=== PATIENT | male | born 1955 | race Caucasian/White ===

== ENCOUNTER 2020-07-31 11:14 | Emergency (ER) | payer SELFPAY ==
[~2020-07-31] VITALS: Ht 152.4 cm; Wt 73.0 kg
[2020-07-31] MEDS ORDERED: HYDRALAZINE 20MG/ML VIAL IV ONE (11:45)
[2020-07-31 12:17] VITALS: BP 164/82
[2020-07-31 12:26] LABS: BASOPHILS % 0.7 % (0.0-2.0); EOSINOPHILS % 5.6 % (0.0-5.0); HEMATOCRIT. 41.6 % (42.0-52.0); HEMOGLOBIN. 13.4 g/dL (14.0-18.0); LYMPHOCYTES % 21.2 % (20.0-50.0); MEAN CORPUSCULAR HEMOGLOBIN 26.6 pg (28.0-32.0); MEAN CORPUSCULAR VOLUME 82.8 fL (80.0-94.0); MEAN PLATELET VOLUME 10.5 fl (7.4-10.4); MONOCYTES % 6.4 % (2.0-8.0); NEUTROPHILS % 66.1 % (40.0-76.0); PLATELET 187 x1000/uL (130-400); RED BLOOD CELL COUNT 5.02 mill/uL (4.7-6.1); RED CELL DISTRIBUTION WIDTH 14.6 % (11.6-14.6)
[2020-07-31 12:35] LABS: CHLORIDE 108 mEq/L (98-107)
[2020-07-31 12:38] LABS: PROTHROMBIN TIME 10.9 sec (9.6-11.0)
[2020-07-31 12:43] LABS: ETHANOL BLOOD < 10 mg/dL
[2020-07-31] MEDS ORDERED: IOHEXOL-300 100 ML BOTTLE ONE (14:11)
== END 2020-07-31 16:15 | disposition home or self-care (01) ==
LOC: ER 11:14
DX: E16.2 Hypoglycemia, unspecified (principal); I10 Essential (primary) hypertension
CPT/HCPCS: 36415; 71045; 74177; 80053; 80320; 82962; 83605; 83690; 85025; 85610; 93005; 96374; 99285; J0360; Q9967; Z7610; G0480

== ENCOUNTER 2021-10-05 15:45 | Emergency (ER) | payer MEDICAID ==
[~2021-10-05] VITALS: Ht 175.3 cm; Wt 75.0 kg
[~2021-10-05 15:45] MED LIST: ASPI-1497 PO; GABA-532 PO; HUM100IN SQ; LISI10TA26 MT; METF-414 MT; OMEP40CA20 PO; PRAV20TA57 MT
[2021-10-05] MEDS ORDERED: MORPHINE SULFATE 4 MG/ML CPJ (NOT FOR IM USE) IV ONE (16:30)
[2021-10-05 16:47] LABS: CHLORIDE 106 mEq/L (98-107)
[2021-10-05 17:25] LABS: BASOPHILS % 0.5 % (0.0-2.0); EOSINOPHILS % 6.4 % (0.0-5.0); HEMATOCRIT. 37.8 % (42.0-52.0); HEMOGLOBIN. 12.5 g/dL (14.0-18.0); LYMPHOCYTES % 27.8 % (20.0-50.0); MEAN CORPUSCULAR HEMOGLOBIN 27.2 pg (28.0-32.0); MEAN CORPUSCULAR VOLUME 81.8 fL (80.0-94.0); MEAN PLATELET VOLUME 8.9 fl (7.4-10.4); MONOCYTES % 7.4 % (2.0-8.0); NEUTROPHILS % 57.9 % (40.0-76.0); PLATELET 150 x1000/uL (130-400); RED BLOOD CELL COUNT 4.62 mill/uL (4.7-6.1); RED CELL DISTRIBUTION WIDTH 16.8 % (11.6-14.6)
[2021-10-05] MEDS ORDERED: ACETAMINOPHEN 325MG TABLET PO ONE (18:00)
[2021-10-05 18:10] VITALS: BP 173/89
[2021-10-05] MEDS ORDERED: ACET-2708 MT (18:46)
[2021-10-05] MEDS ORDERED: IOHEXOL-350 100 ML BOTTLE ONE (19:44)
== END 2021-10-05 19:22 | disposition home or self-care (01) ==
LOC: ER 15:45
DX: R07.9 Chest pain, unspecified (principal); R10.9 Unspecified abdominal pain; I10 Essential (primary) hypertension; F17.210 Nicotine dependence, cigarettes, uncomplicated; Z79.4 Long term (current) use of insulin; Z79.82 Long term (current) use of aspirin; Z86.73 Personal history of transient ischemic attack (TIA), and cerebral infarction without residual deficits; Z86.718 Personal history of other venous thrombosis and embolism
CPT/HCPCS: 36415; 71045; 71275; 74174; 80053; 83690; 83880; 84484; 85025; 93005; 96374; 99285; J2270; Q9967

== ENCOUNTER 2021-11-12 14:21 | Inpatient (IN) | payer MEDICAID ==
[~2021-11-12] VITALS: Ht 170.2 cm; Wt 83.5 kg
[~2021-11-12 14:21] MED LIST changes: +ACET-2708 MT
[2021-11-12] MEDS ORDERED: DIPHENHYDRAMINE 50MG/ML VIAL IV ONE (15:00)
[2021-11-12] MEDS ORDERED: SODIUM CHLORIDE 0.9% 1,000 ML IV ONE (15:00)
[2021-11-12] MEDS ORDERED: PROCHLORPERAZINE 10MG/2ML VIAL IV ONE (15:00)
[2021-11-12 15:15] LABS: BASOPHILS % 0.8 % (0.0-2.0); EOSINOPHILS % 13.4 % (0.0-5.0); HEMOGLOBIN. 13.9 g/dL (14.0-18.0); MEAN CORPUSCULAR HEMOGLOBIN 27.3 pg (28.0-32.0); MEAN CORPUSCULAR VOLUME 84.2 fL (80.0-94.0); MEAN PLATELET VOLUME 9.5 fl (7.4-10.4); MONOCYTES % 4.6 % (2.0-8.0); NEUTROPHILS % 41.2 % (40.0-76.0); PLATELET 159 x1000/uL (130-400); RED BLOOD CELL COUNT 5.11 mill/uL (4.7-6.1); RED CELL DISTRIBUTION WIDTH 16.5 % (11.6-14.6)
[2021-11-12 15:23] LABS: CHLORIDE 107 mEq/L (98-107)
[2021-11-12 15:37] LABS: ETHANOL BLOOD < 10 mg/dL
[2021-11-12 20:40] LABS: CLARITY URINE CLEAR (CLEAR); COLOR URINE YELLOW (YELLOW); KETONES URINE NEGATIVE (NEGATIVE); LEUKOCYTE ESTERASE URINE NEGATIVE (NEGATIVE); NITRITE URINE NEGATIVE (NEGATIVE); OCCULT BLOOD URINE NEGATIVE (NEGATIVE); PROTEIN URINE NEGATIVE (NEGATIVE); SPECIFIC GRAVITY URINE 1.013 (1.005-1.030)
[2021-11-12 20:54] LABS: *AMPHETAMINES SCREEN URINE NEGATIVE (NEGATIVE); *BARBITURATES SCREEN URINE NEGATIVE (NEGATIVE); *BENZODIAZEPINES SCREEN URINE NEGATIVE (NEGATIVE); *COCAINE SCREEN URINE NEGATIVE (NEGATIVE); CANNABINOID URINE SCREEN NEGATIVE (NEGATIVE); METHADONE URINE SCREEN NEGATIVE (NEGATIVE); OPIATES URINE SCREEN NEGATIVE (NEGATIVE); PHENCYCLIDINE URINE SCREEN NEGATIVE (NEGATIVE)
[2021-11-12 21:21] VITALS: BP 178/97
[2021-11-12 21:25] VITALS: BP 178/97
[2021-11-12] MEDS ORDERED: DOCUSATE SODIUM 100MG CAPSULE PO PRN (22:30)
[2021-11-12] MEDS ORDERED: MORPHINE SULFATE 2 MG/ML CPJ (NOT FOR IM USE) IV PRN (22:30)
[2021-11-12] MEDS ORDERED: ONDANSETRON HCL 4MG/2ML INJ IV PRN (22:30)
[2021-11-12] MEDS ORDERED: ACETAMINOPHEN 325MG TABLET PO PRN (22:30)
[2021-11-12] MEDS ORDERED: LORAZEPAM 2MG/ML CPJ IV PRN (22:30)
[2021-11-12] MEDS ORDERED: NALOXONE HCL 0.4MG/ML VIAL IV PRN (22:45)
[2021-11-12] MEDS: HYDROCODONE/ACETAMINOPHEN 5/325MG TABLET PO PRN (23:32)
[2021-11-12] MEDS: SODIUM CHLORIDE 0.9% 1,000 ML IV SCH (23:33)
[2021-11-13] VITALS: BP 156/92
[2021-11-13 04:00] VITALS: BP 123/74
[2021-11-13] MEDS: HYDROCODONE/ACETAMINOPHEN 5/325MG TABLET PO PRN ×3 (05:49→22:11)
[2021-11-13 06:59] LABS: BASOPHILS % 0.6 % (0.0-2.0); EOSINOPHILS % 12.7 % (0.0-5.0); HEMATOCRIT. 40.3 % (42.0-52.0); HEMOGLOBIN. 12.9 g/dL (14.0-18.0); LYMPHOCYTES % 41.8 % (20.0-50.0); MEAN CORPUSCULAR HEMOGLOBIN 27.4 pg (28.0-32.0); MEAN CORPUSCULAR VOLUME 85.4 fL (80.0-94.0); MEAN PLATELET VOLUME 9.7 fl (7.4-10.4); MONOCYTES % 5.9 % (2.0-8.0); PLATELET 159 x1000/uL (130-400); RED BLOOD CELL COUNT 4.72 mill/uL (4.7-6.1); RED CELL DISTRIBUTION WIDTH 16.3 % (11.6-14.6)
[2021-11-13 08:00] VITALS: BP 156/88
[2021-11-13 08:35] LABS: CHLORIDE 109 mEq/L (98-107)
[2021-11-13 08:41] LABS: CREATINE KINASE 54 IU/L (39-308); CREATINE KINASE MB FRACTION < 1.0 ng/mL (0.5-3.6)
[2021-11-13] MEDS: ENOXAPARIN 40MG/0.4ML SYR SUBCUT SCH (09:41)
[2021-11-13] MEDS: SODIUM CHLORIDE 0.9% 1,000 ML IV SCH ×2 (09:42→22:46)
[2021-11-13] MEDS: AMLODIPINE 10MG TABLET PO SCH (11:18)
[2021-11-13 12:00] VITALS: BP 166/85
[2021-11-13 16:00] VITALS: BP 164/88
[2021-11-13 18:44] LABS: CREATINE KINASE MB FRACTION 1.2 ng/mL (0.5-3.6)
[2021-11-13 19:23] LABS: VITAMIN B12 SERUM 324 pg/mL (211-911)
[2021-11-13 20:00] VITALS: BP 157/83
[2021-11-13] MEDS: ATORVASTATIN CALCIUM 40MG TABLET PO SCH (22:11)
[2021-11-13] MEDS ORDERED: DEXTROSE 50% WATER 50ML SYRINGE IV PRN (22:30)
[2021-11-13] MEDS ORDERED: INSULIN LISPRO 100 UNITS/ML SUBCUT SCH (22:30)
[2021-11-14] VITALS: BP 140/78
[2021-11-14] MEDS: SODIUM CHLORIDE 0.9% 1,000 ML IV SCH ×3 (03:40→23:25)
[2021-11-14 04:00] VITALS: BP 127/80
[2021-11-14] MEDS: BLOOD SUGAR DIAGNOSTIC STRIP TEST SCH ×4 (06:34→20:48)
[2021-11-14 08:00] VITALS: BP_SYST 132; BP_SYST 179; BP_SYST 181; BP_SYST 183; BP_DIAS 81; BP_DIAS 91; BP_DIAS 97; BP_DIAS 99
[2021-11-14] MEDS: AMLODIPINE 10MG TABLET PO SCH (08:38)
[2021-11-14] MEDS: ASPIRIN 81MG TABLET PO SCH (08:38)
[2021-11-14] MEDS: ENOXAPARIN 40MG/0.4ML SYR SUBCUT SCH (08:39)
[2021-11-14] MEDS: INSULIN LISPRO 100 UNITS/ML SUBCUT SCH ×4 (08:46→20:58)
[2021-11-14 12:00] VITALS: BP_SYST 126; BP_SYST 165; BP_DIAS 74; BP_DIAS 89
[2021-11-14] MEDS ORDERED: HYDRALAZINE 20MG/ML VIAL IV PRN (14:00)
[2021-11-14 16:00] VITALS: BP 171/87
[2021-11-14] MEDS: PANTOPRAZOLE SODIUM 40 MG/VIAL IV SCH (16:00)
[2021-11-14 20:00] VITALS: BP_SYST 152; BP_SYST 162; BP_DIAS 80
[2021-11-14] MEDS: ATORVASTATIN CALCIUM 40MG TABLET PO SCH (20:49)
[2021-11-15] VITALS (8 sets, daily range): BP systolic 130–171; BP diastolic 75–100
[2021-11-15 06:26] LABS: CHLORIDE 106 mEq/L (98-107)
[2021-11-15] MEDS: BLOOD SUGAR DIAGNOSTIC STRIP TEST SCH ×2 (07:02→12:21)
[2021-11-15 07:30] LABS: BASOPHILS % 0.7 % (0.0-2.0); EOSINOPHILS % 9.8 % (0.0-5.0); HEMATOCRIT. 41.4 % (42.0-52.0); HEMOGLOBIN. 13.6 g/dL (14.0-18.0); LYMPHOCYTES % 37.9 % (20.0-50.0); MEAN CORPUSCULAR HEMOGLOBIN 27.4 pg (28.0-32.0); MEAN CORPUSCULAR VOLUME 83.5 fL (80.0-94.0); NEUTROPHILS % 46.6 % (40.0-76.0); PLATELET 166 x1000/uL (130-400); RED BLOOD CELL COUNT 4.95 mill/uL (4.7-6.1)
[2021-11-15] MEDS: INSULIN LISPRO 100 UNITS/ML SUBCUT SCH ×2 (08:43→12:22)
[2021-11-15] MEDS: AMLODIPINE 10MG TABLET PO SCH (08:44)
[2021-11-15] MEDS: PANTOPRAZOLE SODIUM 40 MG/VIAL IV SCH (08:44)
[2021-11-15] MEDS: ASPIRIN 81MG TABLET PO SCH (08:44)
[2021-11-15] MEDS: ENOXAPARIN 40MG/0.4ML SYR SUBCUT SCH (08:45)
[2021-11-15] MEDS ORDERED: PANTOPRAZOLE SODIUM 40 MG/VIAL IV SCH (09:00)
[2021-11-15] MEDS: SODIUM CHLORIDE 0.9% 1,000 ML IV SCH (10:57)
[2021-11-15] MEDS ORDERED: PREDNISONE 20MG TABLET PO SCH (13:30)
[2021-11-15] MEDS ORDERED: FAMOTIDINE 20MG/2ML VIAL IV SCH (21:00)
== END 2021-11-15 16:51 | disposition home or self-care (01) | DRG 199 ==
LOC: ER 14:21 → 6WST 18:39 → ENRESERV 19:39
PROVIDERS: ADMIT Internal Medicine Nephrology; ATTEND Internal Medicine Nephrology
PROC: 4A00X4Z Measurement of Central Nervous Electrical Activity, External Approach (ICD-10-PCS; principal; 2021-11-14)
DX: I16.0 Hypertensive urgency (principal); E11.43 Type 2 diabetes mellitus with diabetic autonomic (poly)neuropathy; K31.84 Gastroparesis; G43.909 Migraine, unspecified, not intractable, without status migrainosus; M48.02 Spinal stenosis, cervical region; I10 Essential (primary) hypertension; Z86.718 Personal history of other venous thrombosis and embolism; Z82.49 Family history of ischemic heart disease and other diseases of the circulatory system; Z79.4 Long term (current) use of insulin; Z79.899 Other long term (current) drug therapy
CPT/HCPCS: 36415; 70551; 72141; 80048; 80053; 80305; 80320; 81003; 82550; 82553; 82607; 82962; 83036; 83735; 84443; 84484; 85025; 86703; 93005; 93306; 93970; 95816; 97162; 99285; C9113; J0360; J0780; J1200; J1650; J1815; J2405; J7030; G0480

== ENCOUNTER 2022-03-02 15:42 | Emergency (ER) | payer MEDICAID ==
[~2022-03-02] VITALS: Ht 172.7 cm; Wt 91.0 kg
[2022-03-02 15:46] VITALS: BP 163/85
[2022-03-02] MEDS ORDERED: IBUPROFEN 400MG TABLET PO ONE (17:00)
[2022-03-02] MEDS ORDERED: ACETAMINOPHEN 325MG TABLET PO ONE (17:00)
[2022-03-02 17:06] LABS: BASOPHILS % 0.6 % (0.0-2.0); HEMOGLOBIN. 14.3 g/dL (14.0-18.0); LYMPHOCYTES % 33.1 % (20.0-50.0); MEAN CORPUSCULAR HEMOGLOBIN 28.9 pg (28.0-32.0); MEAN CORPUSCULAR VOLUME 86.9 fL (80.0-94.0); MEAN PLATELET VOLUME 8.9 fl (7.4-10.4); MONOCYTES % 6.2 % (2.0-8.0); NEUTROPHILS % 57.1 % (40.0-76.0); PLATELET 156 x1000/uL (130-400); RED BLOOD CELL COUNT 4.96 mill/uL (4.7-6.1); RED CELL DISTRIBUTION WIDTH 14.4 % (11.6-14.6)
[2022-03-02 17:21] LABS: CHLORIDE 107 mEq/L (98-107)
[2022-03-02 17:31] LABS: ETHANOL BLOOD < 10 mg/dL
== END 2022-03-02 18:14 | disposition left against medical advice (07) ==
LOC: ER 15:42
DX: R52 Pain, unspecified (principal); I10 Essential (primary) hypertension; E11.9 Type 2 diabetes mellitus without complications; E78.00 Pure hypercholesterolemia, unspecified; Z79.899 Other long term (current) drug therapy
CPT/HCPCS: 36415; 80053; 80320; 83605; 83880; 84484; 85025; 93005; 99284; G0480

== ENCOUNTER 2023-05-14 09:30 | Inpatient (IN) | payer MEDICAID ==
[~2023-05-14] VITALS: Ht 172.7 cm; Wt 68.1 kg
[~2023-05-14 09:30] MED LIST changes: -LISI10TA26 MT; +LISI20TA31 PO; -METF-414 MT; +METF-817 PO; +[UNRECOGNIZED DRUG - OTHER] PO; +carvedilol PO
[2023-05-14] MEDS ORDERED: ASPIRIN 325MG EC TABLET PO ONE (10:00)
[2023-05-14] MEDS ORDERED: ONDANSETRON HCL 4MG/2ML INJ IV ONE (10:00)
[2023-05-14] MEDS ORDERED: LABETALOL HCL VIAL 20 MG/4 ML VIAL IV ONE (10:00)
[2023-05-14] MEDS ORDERED: ONDANSETRON HCL 4MG/2ML INJ IV NR (10:15)
[2023-05-14] MEDS ORDERED: LABETALOL 5MG/ML SYR 20 MG/4 ML SYRINGE IV NR ×2 (10:15→12:45)
[2023-05-14] MEDS ORDERED: ASPIRIN 325MG EC TABLET PO NR (10:15)
[2023-05-14 10:36] LABS: ALANINE AMINOTRANSFERASE 22 IU/L (10-49); ALBUMIN 5.2 g/dL (3.2-4.8); ASPARTATE AMINOTRANSFERASE 27 IU/L (<34); BILIRUBIN TOTAL 0.8 mg/dL (0.1-1.0); CALCIUM 10.2 mg/dL (8.7-10.4); CARBON DIOXIDE 25 mEq/L (21-32); CHLORIDE 104 mEq/L (98-107); CREATININE 0.8 mg/dL (0.6-1.3); POTASSIUM 3.8 mEq/L (3.5-5.1); PROTEIN TOTAL 8.1 g/dL (6.0-8.3); SODIUM 139 mEq/L (136-145); UREA NITROGEN BLOOD 9 mg/dL (9-23)
[2023-05-14 10:37] LABS: TROPONIN I HIGH SENSITIVITY < 4 ng/L (3.0-53)
[2023-05-14 10:38] LABS: GLUCOSE 291 mg/dL (70-105); TROPONIN I HIGH SENSITIVITY < 4 ng/L (3.0-53)
[2023-05-14 10:46] LABS: HEMATOCRIT. 47.6 % (42.0-52.0); HEMOGLOBIN. 15.2 g/dL (14.0-18.0); MEAN CORPUSCULAR HEMOGLOBIN 28.6 pg (28.0-32.0); MEAN CORPUSCULAR HGB CONC 31.9 g/dL (31.0-37.0); MEAN CORPUSCULAR VOLUME 89.8 fL (80.0-94.0); MEAN PLATELET VOLUME 10.1 fl (7.4-10.4); PLATELET 193 x1000/uL (130-400); WHITE BLOOD COUNT 31.7 x1000/uL (4.5-11.0)
[2023-05-14 10:50] LABS: DIFFERENTIAL COMMENT 1
[2023-05-14 12:06] LABS: PLATELET ESTIMATE NORMAL
[2023-05-14] MEDS ORDERED: MORPHINE SULFATE 4 MG/ML CPJ (NOT FOR IM USE) IV ONE (12:15)
[2023-05-14] MEDS ORDERED: VANCOMYCIN 1G PREMIX 200 ML IV NR (12:45)
[2023-05-14] MEDS ORDERED: PIPERACILLIN/TAZOBACTAM 3.375GM/50ML PREMIX IV ONE (12:45)
[2023-05-14] MEDS ORDERED: PIPERACILLIN/TAZ 3.375G PREMIX 50 ML IV SCH (13:00)
[2023-05-14 16:00] VITALS: BP 151/88; PULSE 83; RESP 21; TEMP 98
[2023-05-14 16:30] VITALS: BP 151/88; PULSE 93; RESP 18; TEMP 98
[2023-05-14] MEDS ORDERED: INSULIN LISPRO 100 UNITS/ML SUBCUT SCH (16:50)
[2023-05-14] MEDS ORDERED: DEXTROSE 50% WATER 50ML SYRINGE IV PRN (17:00)
[2023-05-14] MEDS: ONDANSETRON HCL 4MG/2ML INJ IV PRN ×2 (17:11→22:24)
[2023-05-14] MEDS: MORPHINE SULFATE 2 MG/ML CPJ (NOT FOR IM USE) IV PRN ×2 (17:12→21:02)
[2023-05-14] MEDS: BLOOD SUGAR DIAGNOSTIC STRIP TEST SCH ×2 (17:23→20:54)
[2023-05-14 17:57] LABS: CLARITY URINE CLEAR (CLEAR); COLOR URINE YELLOW (YELLOW); GLUCOSE URINE 2+ (NEGATIVE); KETONES URINE 2+ (NEGATIVE); LEUKOCYTE ESTERASE URINE NEGATIVE (NEGATIVE); NITRITE URINE NEGATIVE (NEGATIVE); OCCULT BLOOD URINE NEGATIVE (NEGATIVE); PH URINE 8.5 (4.5-8.0); PROTEIN URINE 2+ (NEGATIVE); SPECIFIC GRAVITY URINE 1.027 (1.005-1.030); UROBILINOGEN URINE 0.2 E.U./dL (0.2-1.0)
[2023-05-14] MEDS: INSULIN LISPRO 100 UNITS/ML SUBCUT SCH ×2 (18:01→20:54)
[2023-05-14 19:06] LABS: BACTERIA URINE TRACE; RBC URINE NONE SEEN /hpf (0-2); SQUAMOUS EPITHELIAL CELL URINE FEW /lpf (RARE/1+); WBC URINE 0-2 /hpf (0-2)
[2023-05-14 20:00] VITALS: BP 134/82; PULSE 91; RESP 20; TEMP 98.4
[2023-05-14] MEDS: SODIUM CHL 0.45% + KCL 20MEQ/L 1,000 ML IV SCH (20:53)
[2023-05-14] MEDS: PIPERACILLIN/TAZOBACTAM 3.375 G in DEXTROSE 5% WATER 50 ML IV SCH (22:24)
[2023-05-14 23:21] LABS: HEPATITIS B SURFACE ANTIGEN NEGATIVE (Negative); HEPATITIS C AB NON REACTIVE (Neg) (Negative)
[2023-05-15] VITALS: BP 138/81; PULSE 83; RESP 17; TEMP 98.7
[2023-05-15] MEDS: METOCLOPRAMIDE HCL 10MG/2ML VIAL IV SCH ×4 (01:34→21:35)
[2023-05-15] MEDS: MORPHINE SULFATE 2 MG/ML CPJ (NOT FOR IM USE) IV PRN ×2 (01:59→10:03)
[2023-05-15 04:00] VITALS: BP 122/67; PULSE 91; RESP 16; TEMP 98.7
[2023-05-15] MEDS: SODIUM CHL 0.45% + KCL 20MEQ/L 1,000 ML IV SCH ×2 (04:42→14:42)
[2023-05-15] MEDS: ONDANSETRON HCL 4MG/2ML INJ IV PRN (05:45)
[2023-05-15] MEDS: PIPERACILLIN/TAZOBACTAM 3.375 G in DEXTROSE 5% WATER 50 ML IV SCH ×3 (05:46→21:13)
[2023-05-15] MEDS: BLOOD SUGAR DIAGNOSTIC STRIP TEST SCH ×4 (06:03→21:00)
[2023-05-15 07:18] LABS: BASOPHILS % 0.6 % (0.0-2.0); HEMOGLOBIN. 14.6 g/dL (14.0-18.0); LYMPHOCYTES % 31.1 % (20.0-50.0); MEAN CORPUSCULAR HEMOGLOBIN 28.9 pg (28.0-32.0); MEAN CORPUSCULAR HGB CONC 32.4 g/dL (31.0-37.0); MEAN CORPUSCULAR VOLUME 89.1 fL (80.0-94.0); MEAN PLATELET VOLUME 10.4 fl (7.4-10.4); MONOCYTES % 2.5 % (2.0-8.0); NEUTROPHILS % 65.8 % (40.0-76.0); PLATELET 217 x1000/uL (130-400); RED BLOOD CELL COUNT 5.05 mill/uL (4.7-6.1); WHITE BLOOD COUNT 27.4 x1000/uL (4.5-11.0)
[2023-05-15 07:51] LABS: ALANINE AMINOTRANSFERASE 19 IU/L (10-49); AMYLASE 70 IU/L (30-118); ASPARTATE AMINOTRANSFERASE 20 IU/L (<34); BILIRUBIN TOTAL 0.7 mg/dL (0.1-1.0); CALCIUM 9.9 mg/dL (8.7-10.4); CARBON DIOXIDE 26 mEq/L (21-32); CHLORIDE 102 mEq/L (98-107); CREATININE 0.8 mg/dL (0.6-1.3); GLUCOSE 190 mg/dL (70-105); POTASSIUM 3.6 mEq/L (3.5-5.1); PROTEIN TOTAL 7.3 g/dL (6.0-8.3); SODIUM 140 mEq/L (136-145); UREA NITROGEN BLOOD 10 mg/dL (9-23)
[2023-05-15 08:00] VITALS: BP 122/73; PULSE 73; RESP 16; TEMP 98.8
[2023-05-15] MEDS ORDERED: NALOXONE HCL 0.4MG/ML VIAL IV PRN (09:45)
[2023-05-15] MEDS: INSULIN LISPRO 100 UNITS/ML SUBCUT SCH ×4 (09:45→21:56)
[2023-05-15] MEDS: PANTOPRAZOLE SODIUM 40 MG/VIAL IV SCH (09:45)
[2023-05-15 12:00] VITALS: BP 151/78; PULSE 83; RESP 18; TEMP 98.3
[2023-05-15 12:43] LABS: *AMPHETAMINES SCREEN URINE NEGATIVE (NEGATIVE); *BARBITURATES SCREEN URINE NEGATIVE (NEGATIVE); *BENZODIAZEPINES SCREEN URINE NEGATIVE (NEGATIVE); *COCAINE SCREEN URINE NEGATIVE (NEGATIVE); CANNABINOID URINE SCREEN PRESUMPTIVE POSITIVE (NEGATIVE); ECSTASY MDMA SCREEN URINE NEGATIVE (NEGATIVE); METHADONE URINE SCREEN Neg (NEGATIVE); OPIATES URINE SCREEN PRESUMPTIVE POSITIVE (NEGATIVE); PHENCYCLIDINE URINE SCREEN NEGATIVE (NEGATIVE)
[2023-05-15 16:00] VITALS: BP 145/73; PULSE 97; RESP 24; TEMP 98.7
[2023-05-15] MEDS ORDERED: HYDROCODONE/ACETAMINOPHEN 10/325MG TABLET PO PRN (18:45)
[2023-05-15 20:00] VITALS: BP 144/73; PULSE 74; RESP 22; TEMP 97.5
[2023-05-16] VITALS: BP 170/85; PULSE 63; TEMP 97.8
[2023-05-16] MEDS: SODIUM CHL 0.45% + KCL 20MEQ/L 1,000 ML IV SCH ×2 (00:41→21:22)
[2023-05-16 04:00] VITALS: BP 182/84; PULSE 64; RESP 20; TEMP 97.4
[2023-05-16] MEDS: CLONIDINE 0.1MG TABLET PO PRN (04:32)
[2023-05-16] MEDS: METOCLOPRAMIDE HCL 10MG/2ML VIAL IV SCH ×3 (06:44→21:20)
[2023-05-16] MEDS: PIPERACILLIN/TAZOBACTAM 3.375 G in DEXTROSE 5% WATER 50 ML IV SCH ×3 (06:44→21:21)
[2023-05-16] MEDS: BLOOD SUGAR DIAGNOSTIC STRIP TEST SCH ×4 (06:50→21:00)
[2023-05-16 08:00] VITALS: BP 159/73; PULSE 78; RESP 16; TEMP 98.6
[2023-05-16] MEDS: INSULIN LISPRO 100 UNITS/ML SUBCUT SCH ×3 (09:03→21:00)
[2023-05-16] MEDS: PANTOPRAZOLE SODIUM 40 MG/VIAL IV SCH (09:03)
[2023-05-16] MEDS: LISINOPRIL 20MG TABLET PO SCH ×2 (09:04→21:20)
[2023-05-16] MEDS ORDERED: POTASSIUM CHLORIDE INJ 20 MEQ in SODIUM CHLORIDE 0.45% 1,000 ML IV SCH (10:00)
[2023-05-16 12:00] VITALS: BP 155/95; PULSE 75; RESP 22; TEMP 98.4
[2023-05-16 16:00] VITALS: BP 162/101; PULSE 92; RESP 25; TEMP 98.3
[2023-05-16 16:50] LABS: BASOPHILS % 0.6 % (0.0-2.0); EOSINOPHILS % 0.5 % (0.0-5.0); HEMATOCRIT. 45.7 % (42.0-52.0); LYMPHOCYTES % 51.9 % (20.0-50.0); MEAN CORPUSCULAR HEMOGLOBIN 29.1 pg (28.0-32.0); MEAN CORPUSCULAR HGB CONC 32.8 g/dL (31.0-37.0); MEAN CORPUSCULAR VOLUME 88.7 fL (80.0-94.0); MEAN PLATELET VOLUME 9.9 fl (7.4-10.4); MONOCYTES % 2.8 % (2.0-8.0); NEUTROPHILS % 44.2 % (40.0-76.0); PLATELET 202 x1000/uL (130-400); RED BLOOD CELL COUNT 5.15 mill/uL (4.7-6.1); RED CELL DISTRIBUTION WIDTH 13.5 % (11.6-14.6); WHITE BLOOD COUNT 17.4 x1000/uL (4.5-11.0)
[2023-05-16 17:28] LABS: CALCIUM 9.7 mg/dL (8.7-10.4); CARBON DIOXIDE 27 mEq/L (21-32); CHLORIDE 100 mEq/L (98-107); CREATININE 0.8 mg/dL (0.6-1.3); GLUCOSE 203 mg/dL (70-105); POTASSIUM 3.8 mEq/L (3.5-5.1); SODIUM 137 mEq/L (136-145); UREA NITROGEN BLOOD 7 mg/dL (9-23)
[2023-05-16 20:00] VITALS: BP 151/76; PULSE 88; RESP 20; TEMP 98.5
[2023-05-17] VITALS: BP 147/86; PULSE 73; RESP 21; TEMP 98.6
[2023-05-17] MEDS: SODIUM CHL 0.45% + KCL 20MEQ/L 1,000 ML IV SCH (03:44)
[2023-05-17] MEDS: CLONIDINE 0.1MG TABLET PO PRN (03:48)
[2023-05-17 04:00] VITALS: BP 162/100; PULSE 88; RESP 17; TEMP 98.7
[2023-05-17] MEDS: PIPERACILLIN/TAZOBACTAM 3.375 G in DEXTROSE 5% WATER 50 ML IV SCH (06:35)
[2023-05-17] MEDS: BLOOD SUGAR DIAGNOSTIC STRIP TEST SCH (06:35)
[2023-05-17] MEDS: METOCLOPRAMIDE HCL 10MG/2ML VIAL IV SCH (06:35)
[2023-05-17 08:00] VITALS: BP 168/99; PULSE 78; RESP 17; TEMP 98.5
[2023-05-17] MEDS: PANTOPRAZOLE SODIUM 40 MG/VIAL IV SCH (08:01)
[2023-05-17] MEDS: LISINOPRIL 20MG TABLET PO SCH (08:01)
[2023-05-17] MEDS: INSULIN LISPRO 100 UNITS/ML SUBCUT SCH ×2 (08:02→12:33)
[2023-05-17] MEDS ORDERED: CARVEDILOL 12.5MG TABLET PO SCH (12:30)
[2023-05-17] MEDS ORDERED: OMEP40CA20 MT (13:26)
[2023-05-17] MEDS ORDERED: METO-293 MT (13:26)
[2023-05-17 13:35] VITALS: BP 130/70; PULSE 78; TEMP 98.5; O2SAT 98
== END 2023-05-17 14:08 | disposition home or self-care (01) | DRG 48 ==
LOC: ER 09:30 → 3WST 13:38 → EDBEDREQ 13:44
PROVIDERS: ADMIT Internal Medicine; ATTEND Internal Medicine
DX: E11.43 Type 2 diabetes mellitus with diabetic autonomic (poly)neuropathy (principal); D72.829 Elevated white blood cell count, unspecified; E11.65 Type 2 diabetes mellitus with hyperglycemia; E78.00 Pure hypercholesterolemia, unspecified; I10 Essential (primary) hypertension; K52.9 Noninfective gastroenteritis and colitis, unspecified; K31.84 Gastroparesis; I16.0 Hypertensive urgency; Z79.899 Other long term (current) drug therapy
CPT/HCPCS: 36415; 71045; 74176; 80048; 80053; 80305; 81003; 82150; 82962; 83036; 83880; 84484; 85025; 86705; 87340; 93005; 99285; C9113; J1815; J2270; J2405; J2543; J2765; J3370; J3480; J3490; J7060